=== PATIENT | female | born 1955 ===

== ENCOUNTER 2023-04-19 06:15 | Day surgery (SDC) | payer OTHER | END 2023-04-19 11:55 | disposition home or self-care (01) | LOC: AMB-ENDOS 06:15 | PROVIDERS: ATTEND Colon & Rectal Surgery | DX: D12.3 Benign neoplasm of transverse colon (principal); K57.30 Diverticulosis of large intestine without perforation or abscess without bleeding; R19.4 Change in bowel habit; Z20.822 Contact with and (suspected) exposure to COVID-19; Z88.0 Allergy status to penicillin ==